=== PATIENT | female | born 1950 | race Asian ===

== ENCOUNTER 2018-08-17 10:26 | Day surgery (SDC) | payer MEDICARE, OTHER ==
[2018-08-17] MEDS ORDERED: NS 1,000 ML IV (11:30)
[2018-08-17] MEDS ORDERED: PROPOFOL 200 MG/20 ML VIAL As Ordered (11:50)
[2018-08-17] MEDS ORDERED: LIDOCAINE 2% INJ 100 MG/5 ML SDV (FOR ANES.) As Ordered (11:52)
== END 2018-08-17 13:30 | disposition home or self-care (01) ==
LOC: M OPP 10:26
DX: K29.70 Gastritis, unspecified, without bleeding (principal); R10.13 Epigastric pain; I10 Essential (primary) hypertension; E11.9 Type 2 diabetes mellitus without complications; E78.00 Pure hypercholesterolemia, unspecified; Z79.899 Other long term (current) drug therapy; Z78.0 Asymptomatic menopausal state; Z87.891 Personal history of nicotine dependence
CPT/HCPCS: G0121

== ENCOUNTER → 2018-08-21 | Outpatient (CLI) | payer MEDICARE, OTHER ==
[2018-08-21 11:41] LABS: HEMATOCRIT 37.6 % (36.0-47.0); HEMOGLOBIN 12.5 g/dl (12.0-15.5); MEAN CORPUSCULAR HEMOGLOBIN 32.6 pg (27.0-33.0); MEAN CORPUSCULAR HGB CONC 33.2 g/dl (32.0-36.5); MEAN CORPUSCULAR VOLUME 97.9 fl (80.0-96.0); PLATELET COUNT, AUTOMATED 217 10^3/uL (150-450); RED BLOOD COUNT 3.84 10^6/uL (4.00-5.40); RED CELL DISTRIBUTION WIDTH 11.9 % (11.5-14.5); WHITE BLOOD COUNT 4.6 10^3/uL (4.0-10.0)
[2018-08-21 11:46] LABS: ALBUMIN 4.2 GM/DL (3.2-5.2); ALBUMIN/GLOBULIN RATIO 1.17 (1.00-1.93); ALKALINE PHOSPHATASE 71 U/L (45-117); ALT/SGPT 44 U/L (12-78); AST/SGOT 38 U/L (7-37); BILIRUBIN,DIRECT 0.2 MG/DL (0.0-0.2); BILIRUBIN,TOTAL 0.5 MG/DL (0.2-1.0); IRON (FE) 99 UG/DL (50-170); TOTAL IRON BINDING CAPACITY 396 UG/DL (250-450); TOTAL PROTEIN 7.8 GM/DL (6.4-8.2)
[2018-08-21 11:53] LABS: INR 1.03; PROTHROMBIN TIME 13.6 SECONDS (12.1-14.4)
[2018-08-21 11:54] LABS: PARTIAL THROMBOPLASTIN TIME 32.3 SECONDS (25.4-37.6)
[2018-08-21 12:09] LABS: HEPATITIS B SURFACE ANTIGEN NEGATIVE (NEGATIVE)
[2018-08-21 12:37] LABS: HEPATITIS C VIRUS ABY INDEX 0.1 INDEX (<0.8)
[2018-08-21 12:38] LABS: HEPATITIS B CORE ANTIBODY IGM NEGATIVE (NEGATIVE)
[2018-08-21 12:39] LABS: HEPATITIS A ANTIBODY IGM NEGATIVE (NEGATIVE)
[2018-08-25 00:10] LABS: ANCA-ATYPICAL <1:20 titer (Neg:<1:20); ANTI-MITOCHONDRIAL ANTIBODY 3.2 Units (0.0-20.0); ANTINUCLEAR ANTIBODIES DIRECT Negative (Negative); CERULOPLASMIN 21.3 mg/dL (19.0-39.0); CYTOPLASMIC NEUTROP AB ANCA-C <1:20 titer (Neg:<1:20); PERINUCLEAR AB ANCA-P <1:20 titer (Neg:<1:20)
== END ==
LOC: M LRY 08:38
DX: R94.5 Abnormal results of liver function studies (principal)
CPT/HCPCS: 83550

== ENCOUNTER → 2018-09-01 | Outpatient (CLI) | payer MEDICARE, OTHER | LOC: M RAD 08:31 | DX: R94.5 Abnormal results of liver function studies (principal); K76.0 Fatty (change of) liver, not elsewhere classified | CPT/HCPCS: 76705 ==

== ENCOUNTER 2018-11-10 06:47 | Day surgery (SDC) | payer MEDICARE, OTHER ==
[~2018-11-10] VITALS: Ht 157.5 cm; Wt 65.3 kg
[~2018-11-10 06:47] MED LIST: GLIP5TAB20 PO; JANU50TA25 PO; LISI-542 PO; SIMV20TA2 PO
[2018-11-10] MEDS ORDERED: LIDOCAINE 2% INJ 100 MG/5 ML SDV (FOR ANES.) As Ordered ONE (07:13)
[2018-11-10] MEDS ORDERED: PROPOFOL 200 MG/20 ML VIAL As Ordered ONE (07:13)
[2018-11-10] MEDS ORDERED: NS 1,000 ML IV ONE (07:15)
--- NOTE | 2018-11-10 07:57 | ROOR ---
Patient Name: Grayson Mulligan Procedure Date: 11/10/2018 7:33 AM Date of : 1950 Age: 68 Room: [facility] Gender: Female Note Status: Finalized Procedure: Colonoscopy Indications: Screening for colorectal malignant neoplasm Providers: Josh CABRERA MD Referring MD: OLIVIA BAKER MD Requesting Provider: Medicines: Monitored Anesthesia Care Complications: No immediate complications. Procedure: Pre-Anesthesia Assessment: - The heart rate, respiratory rate, oxygen saturations, blood pressure, adequacy of pulmonary ventilation, and response to care were monitored throughout the procedure. The Colonoscope was introduced through the anus and advanced to the terminal ileum, with identification of the appendiceal orifice and IC valve. The colonoscopy was performed without difficulty. The patient tolerated the procedure well. The quality of the bowel preparation was good. Findings: The perianal and digital rectal examinations were normal. The colon (entire examined portion) was mildly redundant. Small Internal Hemorrhoids. The entire examined colon appeared normal on direct and retroflexion views. Impression: - Small Internal Hemorrhoids. - The entire colon is normal on direct and retroflexion views. - No specimens collected. Recommendation: - Repeat colonoscopy in 10 years for screening purposes. Josh Cabrera MD Josh CABRERA MD 11/10/2018 7:57:00 AM This report has been signed electronically. Number of Addenda: 0 Note Initiated On: 11/10/2018 7:33 AM Estimated Blood Loss: Estimated blood loss: none.
[2018-11-10 08:10] VITALS: BP 101/55
== END 2018-11-10 08:20 | disposition home or self-care (01) ==
LOC: M OPP 06:47
PROVIDERS: ATTEND Internal Medicine Gastroenterology
DX: Z12.11 Encounter for screening for malignant neoplasm of colon (principal); Q43.8 Other specified congenital malformations of intestine; K64.8 Other hemorrhoids; E11.9 Type 2 diabetes mellitus without complications; R12 Heartburn; I10 Essential (primary) hypertension; E78.00 Pure hypercholesterolemia, unspecified; Z79.899 Other long term (current) drug therapy

== ENCOUNTER 2020-10-18 15:27 | Inpatient (IN) | payer MEDICARE, OTHER ==
[~2020-10-18] VITALS: Ht 157.5 cm; Wt 65.0 kg
[~2020-10-18 15:27] MED LIST changes: -SIMV20TA2 PO; +SIMV20TA22 PO
[2020-10-18] MEDS ORDERED: ACETAMINOPHEN TAB 650MG DOSE (2X325MG) PO ONE (16:30)
[2020-10-18 16:43] LABS: HEMATOCRIT 37.7 % (36.0-47.0); HEMOGLOBIN 12.7 g/dl (12.0-15.5); MEAN CORPUSCULAR HEMOGLOBIN 31.8 pg (27.0-33.0); MEAN CORPUSCULAR HGB CONC 33.7 g/dl (32.0-36.5); MEAN CORPUSCULAR VOLUME 94.5 fl (80.0-96.0); PLATELET COUNT, AUTOMATED 194 10^3/uL (150-450); RED BLOOD COUNT 3.99 10^6/uL (4.00-5.40); WHITE BLOOD COUNT 4.6 10^3/uL (4.0-10.0)
[2020-10-18] MEDS ORDERED: GLIP5TAB8 PO (16:51)
[2020-10-18] MEDS ORDERED: JARD1TAB PO (16:51)
[2020-10-18] MEDS ORDERED: PT COMMENT (16:52)
--- NOTE | 2020-10-18 17:11 | REP ---
INDICATION: Coronavirus workup. COMPARISON: None. TECHNIQUE: SINGLE PORTABLE AP VIEW OF THE CHEST WAS PERFORMED. FINDINGS: There may be subtle hazy peripheral infiltrates bilaterally inferiorly. The heart is normal in size. The mediastinal silhouette is unremarkable. The visualized osseous structures are unremarkable. IMPRESSION: Possible subtle hazy peripheral infiltrates both lower lungs. <Electronically signed by Josias Sanford > 10/18/20 [id number]
[2020-10-18 17:13] LABS: ALBUMIN 3.2 GM/DL (3.2-5.2); ALT/SGPT 29 U/L (12-78); BILIRUBIN,TOTAL 0.8 MG/DL (0.2-1.0); BLOOD UREA NITROGEN 12 MG/DL (7-18); C REACTIVE PROTEIN QUANTITATIV 7.58 MG/DL (0.00-0.30); CALCIUM LEVEL 8.1 MG/DL (8.8-10.2); CARBON DIOXIDE LEVEL 28 MEQ/L (21-32); CHLORIDE LEVEL 95 MEQ/L (98-107); CREATININE FOR GFR 0.72 MG/DL (0.55-1.30); FERRITIN 748 NG/ML (8-252); GLOMERULAR FILTRATION RATE > 60.0 (>45); GLUCOSE, FASTING 162 MG/DL (70-100); POTASSIUM SERUM 3.6 MEQ/L (3.5-5.1); SODIUM LEVEL 130 MEQ/L (136-145); TROPONIN I < 0.02 NG/ML (< 0.10)
[2020-10-18 17:49] LABS: ATYPICAL LYMPH 3 % (0-5); LYMPHOCYTES 13 % (16-44); MONOCYTES 2 % (0-5); NEUTROPHILS 76 % (28-66)
[2020-10-18 17:50] LABS: ANISOCYTOSIS 1+; OVALOCYTES 1+; PLATELET ESTIMATE NORMAL (NORMAL); POIKILOCYTOSIS 1+
[2020-10-18] MEDS ORDERED: NS IV ONE (18:00)
[2020-10-18] MEDS ORDERED: CEFEPIME HCL 2 GM in D5W MINI-BAG PLUS 50 ML IV ONE (18:00)
[2020-10-18] MEDS ORDERED: GLUCAGON INJ 1MG VIAL SC PRN (18:30)
[2020-10-18] MEDS ORDERED: DEXTROSE 50% 50 ML SYRINGE IV PRN (18:30)
[2020-10-18] MEDS ORDERED: GLUCOSE 4GM CHEW TABLET PO PRN (18:30)
[2020-10-18] MEDS: HumaLOG INSULIN (NovoLOG) PER UNIT SC SCH (21:00)
[2020-10-18 21:28] LABS: HEMATOCRIT 33.9 % (36.0-47.0); HEMOGLOBIN 10.9 g/dl (12.0-15.5); MEAN CORPUSCULAR HGB CONC 32.2 g/dl (32.0-36.5); MEAN CORPUSCULAR VOLUME 96.3 fl (80.0-96.0); PLATELET COUNT, AUTOMATED 173 10^3/uL (150-450); RED BLOOD COUNT 3.52 10^6/uL (4.00-5.40); WHITE BLOOD COUNT 4.4 10^3/uL (4.0-10.0)
[2020-10-18 21:49] LABS: LYMPHOCYTES 18 % (16-44); MONOCYTES 5 % (0-5); NEUTROPHILS 73 % (28-66); PLATELET ESTIMATE NORMAL (NORMAL); POLYCHROMASIA 1+
[2020-10-18 21:50] LABS: ANISOCYTOSIS 1+
[2020-10-18 22:48] LABS: ALBUMIN 2.4 GM/DL (3.2-5.2); ALT/SGPT 22 U/L (12-78); BILIRUBIN,DIRECT 0.2 MG/DL (0.0-0.2); BILIRUBIN,TOTAL 0.6 MG/DL (0.2-1.0); BLOOD UREA NITROGEN 10 MG/DL (7-18); C REACTIVE PROTEIN QUANTITATIV 6.14 MG/DL (0.00-0.30); CALCIUM LEVEL 6.9 MG/DL (8.8-10.2); CARBON DIOXIDE LEVEL 24 MEQ/L (21-32); CHLORIDE LEVEL 108 MEQ/L (98-107); CK-MB VALUE MASS < 1.0 NG/ML (<3.6); CPK CREATINE PHOSPHOKINASE 129 U/L (26-192); CREATININE FOR GFR 0.66 MG/DL (0.55-1.30); FERRITIN 631 NG/ML (8-252); GLOMERULAR FILTRATION RATE > 60.0 (>45); GLUCOSE, FASTING 141 MG/DL (70-100); HEPATITIS B SURFACE ANTIGEN NEGATIVE (NEGATIVE); HIV 1&2 SCREEN CENTAUR NEGATIVE (NEGATIVE); LDH LACTATE DEHYDROGENASE 345 U/L (84-246); MB/CK RELATIVE INDEX 0.78 (< OR =4); NT-PRO BNP 372 PG/ML (<125); POTASSIUM SERUM 3.2 MEQ/L (3.5-5.1); SODIUM LEVEL 138 MEQ/L (136-145); TOTAL PROTEIN 5.7 GM/DL (6.4-8.2); TRIGLYCERIDES LEVEL 119 MG/DL (<150); TROPONIN I < 0.02 NG/ML (< 0.10)
[2020-10-19] VITALS (11 sets, daily range): BP systolic 78–105; BP diastolic 40–78; O2SAT 90–95
[2020-10-19] MEDS ORDERED: REMDESIVIR 200 MG in NS 250 ML IV ONE ×2
[2020-10-19] MEDS ORDERED: SODIUM CHLORIDE 0.9% INJ 10 ML SYR IV ONE (01:00)
[2020-10-19] MEDS: HumaLOG INSULIN (NovoLOG) PER UNIT SC SCH ×4 (07:30→21:00)
[2020-10-19 08:16] LABS: EOS % 0.2 % (0.0-3.0); HEMATOCRIT 35.9 % (36.0-47.0); HEMOGLOBIN 11.9 g/dl (12.0-15.5); LYMPH % 18.3 % (24.0-44.0); MEAN CORPUSCULAR HGB CONC 33.1 g/dl (32.0-36.5); MEAN CORPUSCULAR VOLUME 96.5 fl (80.0-96.0); MONO % 3.2 % (0.0-5.0); NEUTROPHILS % 78.3 % (36.0-66.0); PLATELET COUNT, AUTOMATED 183 10^3/uL (150-450); RED BLOOD COUNT 3.72 10^6/uL (4.00-5.40)
[2020-10-19 08:17] LABS: LYMPH # 0.7 10^3/uL (1.5-5.0); MONO # 0.1 10^3/uL (0.0-0.8); NEUTROPHILS # 3.2 10^3/uL (1.5-8.5)
[2020-10-19] MEDS: ENOXAPARIN 40MG/0.4ML SYRINGE (J1650 PER 10MG) SC SCH (08:25)
[2020-10-19] MEDS: SIMVASTATIN 20 MG TAB PO SCH (08:25)
[2020-10-19] MEDS: PIPERACILLIN/TAZOBACTAM SOD 4.5 GM in D5W MINI-BAG PLUS 50 ML IV SCH ×5 (08:25→18:00)
[2020-10-19 08:52] LABS: ALBUMIN 2.5 GM/DL (3.2-5.2); ALT/SGPT 22 U/L (12-78); BILIRUBIN,DIRECT 0.2 MG/DL (0.0-0.2); BILIRUBIN,TOTAL 0.6 MG/DL (0.2-1.0); BLOOD UREA NITROGEN 9 MG/DL (7-18); CALCIUM LEVEL 7.4 MG/DL (8.8-10.2); CARBON DIOXIDE LEVEL 26 MEQ/L (21-32); CHLORIDE LEVEL 108 MEQ/L (98-107); CREATININE FOR GFR 0.58 MG/DL (0.55-1.30); FERRITIN 595 NG/ML (8-252); GLOMERULAR FILTRATION RATE > 60.0 (>45); GLUCOSE, FASTING 135 MG/DL (70-100); MAGNESIUM LEVEL 2.4 MG/DL (1.8-2.4); NT-PRO BNP 650 PG/ML (<125); POTASSIUM SERUM 3.7 MEQ/L (3.5-5.1); SODIUM LEVEL 139 MEQ/L (136-145); TOTAL PROTEIN 5.7 GM/DL (6.4-8.2); TROPONIN I < 0.02 NG/ML (< 0.10)
[2020-10-19 08:53] LABS: INR 1.12; PROTHROMBIN TIME 14.7 SECONDS (12.5-14.3)
[2020-10-19 08:54] LABS: PARTIAL THROMBOPLASTIN TIME 37.7 SECONDS (24.2-38.5)
[2020-10-19 08:57] LABS: D-DIMER QUANT 1848.4 ng/ml (<500)
--- NOTE | 2020-10-19 10:02 | HPE ---
HISTORY AND PHYSICAL DATE OF ADMISSION: 10/18/2020 CHIEF COMPLAINT: Dyspnea. HISTORY OF PRESENT ILLNESS: A 70-year-old woman developed myalgia, malaise. She had A COVID screen initially negative on October 11. Two days later she developed loss of smell and increasing malaise, came to the ER, found to be positive for COVID-19. Her COVID-19 test was an outpatient study. She presents with dyspnea and mild to moderate hypoxia. Developed low blood pressures while in the ED and was responding favorably to a 2 liter fluid bolus. Patient interviewed with telephone assist using her daughter as a hospital aide since the patient only speaks Kyrgyz. PAST MEDICAL HISTORY: Remarkable for diabetes mellitus type-2 non-insulin requiring, hypercholesterolemia. CURRENT MEDICATIONS INCLUDE: - Glipizide 5 mg daily - Lisinopril 5 mg daily - Simvastatin 20 mg daily - Sitagliptin-Metformin one by mouth twice a day More details regarding her history, family history, etc will need to be elicited from daughter when she can be interviewed with more detail face to face. ALLERGIES: There are no known drug allergies. PHYSICAL EXAMINATION: GENERAL: The patient is alert, pleasant and cooperative. She is conversant in Kyrgyz, using her cell phone w no apparent difficulty. She is just part-way through a fluid resuscitation bolus because of hypotension, pressure dropping to just below 90 and she has responded favorably to this infusion. VITAL SIGNS: Pressure currently 110/59, sat 85% on room air and responded into the low 90s with 3 to 4 liters. Temperature 101.4 documented. HEENT: Facies are symmetrical. No neck masses palpable. LUNGS: Air movements are good except we do hear rales in the bases, somewhat more prominent on the left than the right. HEART: Regular rhythm without murmur. ABDOMEN: Soft. No guarding, no mass, no distention, nontender. EXTREMITIES: Moves all extremities well without limitation. SKIN: There is no visible skin rash. NEUROLOGIC: She has no focal weakness and no sensory deficits and seems to be alert and oriented as well as one can tell through the automotive parts interpreter and alternate language. Laboratory data available here today includes a sodium of 130, glucose 162, and AST is 47, ALT 29, C-reactive protein 7.58. Procalcitonin is pending. Lactic acid was elevated at 2.3. Repeat lactic acid is ordered for 1821. Chest x-ray shows subtle hazy peripheral infiltrates in both lower lung dalal. ASSESSMENT: The patient with what appears to be COVID pneumonia. She did develop sepsis, was given a dose of cefepime. After discussion with Dr. Syed, this will be changed to Zosyn going forward. Dr. Syed because of underlying risk factors has suggested remdesivir protocol and will likely add atezolizumab for further treatment. Steroids will be held off for now at Dr. Syed's recommendation. Her oral diabetes medications will be stopped and she will have fingersticks and sliding scale Insulin coverage. We will continue her simvastatin for now. Prognosis is guarded considering the underlying diagnosis and risk factors, age, diabetes. Her daughter is aware of her admission to ICU and Dr. Burton received a communication regarding the admission.
[2020-10-19] MEDS ORDERED: ALBUTEROL 90 MCG/ACT 8GM HFA INHALER INH PRN (11:00)
--- NOTE | 2020-10-19 12:58 | IPNPDOC ---
Text Note Date of Service The patient was seen on 10/19/20. NOTE SUBJECTIVE: -On 5L NC, no acute changes overnight OBJECTIVE: VITAL SIGNS: Tmax 101.4, normotensive, on 5L NC HEENT: NCAT, non injected, anicteric, MMM LUNGS: Bibasilar wet crackles with otherwise good air movement HEART: RRR, no mrg ABDOMEN: Normoactive sounds, soft, NTND EXTREMITIES: no LE edema, WWP NEUROLOGIC: AOx3, CN3-12 intact, moving all extremities, nonfocal Laboratory data: reviewed Chest x-ray: subtle hazy peripheral infiltrates in both lower lung dalal. ASSESSMENT: 70 yo W admitted for COVID-19 pneumonia and hypoxemic respiratory failure with sepsis. Hypoxemic respiratory failure 2/2 Covid-19 PNA: -supplemental O2, to goal 92%, currently on 5L NC -Per Dr. Dominguez on baricitinib/remedesivir -Steroids will be held off for now at Dr. Syed's recommendation, at admission. -incentive spirometry -benzonatate for cough -albuterol mdi -empiric antibiotics as below Sepsis with fever, tachycardia, hypotension -c/w zosyn, day 2 -f/u BCx -procalcitonin is elevated -> sputum culture if expectorated DM2: -SSI AC/HS -FSBG AC/HS -hypolgycemia protocol -consistent carb diet HLD: -c/w home simvastatin VS,Fishbone, I+O VS, Fishbone, I+O Laboratory Tests 10/18/20 15:43 10/18/20 20:10 10/19/20 07:33 Vital Signs Date Time Temp Pulse Resp B/P (MAP) Pulse Ox O2 Delivery O2 Flow Rate FiO2 10/19/20 06:00 91 Nasal Cannula 5.0 10/19/20 02:30 98.9 69 18 105/52 (69) I&O- Last 24 Hours up to 6 AM 10/19/20 06:00 Intake Total 2120 ml Balance 2120 ml ALBARO RECIO MD Oct 19, 2020 10:49
[2020-10-19] MEDS: BARICITINIB 2MG TABLET (OLUMIANT) FOR EUA PO SCH (14:13)
[2020-10-19] MEDS ORDERED: NS 1,000 ML IV ONE (15:30)
[2020-10-19] MEDS ORDERED: NS 1,000 ML IV SCH (15:30)
[2020-10-19] MEDS ORDERED: SODIUM CHLORIDE 0.9% 1000ML IV ONE (15:30)
[2020-10-19] MEDS: NS 1,000 ML IV SCH (17:02)
--- NOTE | 2020-10-19 21:47 | CR ---
CONSULTATION DATE: 10/19/2020 Pulmonary medicine remote telemedicine consult. CHIEF COMPLAINT: Dyspnea. HISTORY OF PRESENT ILLNESS: History was obtained from the chart review as this was a remote consult. Patient is a 70-year-old female with a past medical history of diabetes and hyperlipidemia who presented with complaints of malaise and myalgias as well as some shortness of breath. Patient had a COVID test initially done on 10/11/2020. She then had symptoms of shortness of breath and loss of smell and presented to the emergency department (ED) 2 days later when her repeat outpatient COVID-19 test was positive. She was brought in by emergency medical services (EMS). Initially, she was 86% on room air and was given nasal cannula oxygen supplementation with improvement. In the ED, patient was hypotensive. She was given two liters normal saline bolus with improvement in her blood pressure. She also had a mild lactic acidosis initially which did improve with IV fluids. PAST MEDICAL HISTORY: Diabetes, hyperlipidemia, hypertension. PAST SURGICAL HISTORY: Colonoscopy. HOME MEDICATIONS: - Janumet - simvastatin - lisinopril - glipizide - Jardiance SOCIAL HISTORY: No tobacco use. VITAL SIGNS: Maximum temperature (T-max) 101.4, current temperature (T-current) 98.9, pulse 69, respirations 18, blood pressure 105/52, oxygen 91% on 5 liters nasal cannula. Intake 2 liters, output not recorded. LABORATORY DATA: WBC 4.0, hemoglobin 11.9, platelets 183. Chemistry: Sodium 139, potassium 3.7, chloride 108, bicarbonate 26, BUN 9, creatinine 0.58, glucose 135, lactic acid 2.3, repeat 2.2, ferritin 595, albumin 2.5, AST and ALT within normal limits, LDH 345, troponin negative times two, BNP 650, increased from 372, procalcitonin was 0.12, INR was 1.12, fibrinogen 616, D-dimer 1848. IMAGING: Chest x-ray on admission showed very minimal subtle hazy opacities in the lower lobe bilaterally. ASSESSMENT AND PLAN: Ms. Mulligan is a 70-year-old female with a past medical history of diabetes, hypertension, and hyperlipidemia who presented with acute hypoxemic respiratory failure in the setting of COVID-19 pneumonia. Patient was initially requiring 2-3 liters nasal cannula oxygen, however has been requiring increasing amounts of nasal cannula oxygen supplementation. Given her timeline, patient would be a candidate for Remdesivir for her COVID-19 pneumonia. Given her hypoxemic respiratory failure, she would also benefit from the addition of baricitinib to the Remdesivir which has shown on recent studies to have improvement in recovery time as well as improving the risk of progression to mechanical ventilation and intubation. With the baricitinib and Remdesivir would hold off on steroids at this time. She will be on Remdesivir for a 10 day course and the baricitinib will be for a 14 day course or until discharge. - Will continue with incentive spirometry and encourage patient for awake pronation as tolerated. - Continue with empiric antibiotics with trending of procalcitonin to aid in deescalation. - Will continue with IV fluid boluses as needed to maintain a mean arterial pressure (MAP) above 65. If patient is having continued hypotension, then she may require pressors at that time. - Continue with albuterol metered dose inhaler (MDI). Deep venous thrombosis (DVT) prophylaxis. Lovenox 40 mg daily. If she has increasing D-dimer, would consider increasing to weight-based prophylaxis which is 0.5 mg/kg twice a day. CODE STATUS: FULL CODE. Please do not hesitate to call if any further questions or concerns.
[2020-10-20] MEDS: REMDESIVIR 100 MG in NS 250 ML IV SCH (00:37)
[2020-10-20] MEDS ORDERED: ACETAMINOPHEN TAB 650MG DOSE (2X325MG) PO PRN (01:45)
[2020-10-20] MEDS: PIPERACILLIN/TAZOBACTAM SOD 4.5 GM in D5W MINI-BAG PLUS 50 ML IV SCH ×4 (02:20→18:08)
[2020-10-20] MEDS: ONDANSETRON 4MG/2ML VIAL IV PRN (02:20)
[2020-10-20] MEDS: SODIUM CHLORIDE 0.9% INJ 10 ML SYR IV SCH (02:21)
[2020-10-20 04:00] VITALS: O2SAT 93
[2020-10-20] MEDS: NS 1,000 ML IV SCH (06:36)
[2020-10-20 06:37] VITALS: BP 98/54; O2SAT 95
[2020-10-20 07:21] LABS: HEMATOCRIT 32.9 % (36.0-47.0); HEMOGLOBIN 10.6 g/dl (12.0-15.5); MEAN CORPUSCULAR HEMOGLOBIN 31.1 pg (27.0-33.0); MEAN CORPUSCULAR HGB CONC 32.2 g/dl (32.0-36.5); MEAN CORPUSCULAR VOLUME 96.5 fl (80.0-96.0); PLATELET COUNT, AUTOMATED 190 10^3/uL (150-450); RED BLOOD COUNT 3.41 10^6/uL (4.00-5.40)
[2020-10-20 07:48] LABS: EOSINOPHILS 1 % (0-3); LYMPHOCYTES 34 % (16-44); MONOCYTES 3 % (0-5); NEUTROPHILS 62 % (28-66); PLATELET ESTIMATE NORMAL (NORMAL)
[2020-10-20 07:59] LABS: INR 1.15
[2020-10-20 08:00] VITALS: BP 104/55
[2020-10-20 08:00] LABS: PARTIAL THROMBOPLASTIN TIME 35.1 SECONDS (24.2-38.5)
[2020-10-20 08:17] LABS: ALBUMIN 2.2 GM/DL (3.2-5.2); ALT/SGPT 17 U/L (12-78); BILIRUBIN,DIRECT 0.2 MG/DL (0.0-0.2); BILIRUBIN,TOTAL 0.5 MG/DL (0.2-1.0); BLOOD UREA NITROGEN 10 MG/DL (7-18); CALCIUM LEVEL 7.3 MG/DL (8.8-10.2); CARBON DIOXIDE LEVEL 22 MEQ/L (21-32); CHLORIDE LEVEL 111 MEQ/L (98-107); CREATININE FOR GFR 0.61 MG/DL (0.55-1.30); FERRITIN 534 NG/ML (8-252); GLOMERULAR FILTRATION RATE > 60.0 (>45); GLUCOSE, FASTING 129 MG/DL (70-100); MAGNESIUM LEVEL 2.2 MG/DL (1.8-2.4); NT-PRO BNP 1028 PG/ML (<125); POTASSIUM SERUM 2.9 MEQ/L (3.5-5.1); SODIUM LEVEL 141 MEQ/L (136-145); TOTAL PROTEIN 5.7 GM/DL (6.4-8.2); TROPONIN I < 0.02 NG/ML (< 0.10)
[2020-10-20] MEDS: HumaLOG INSULIN (NovoLOG) PER UNIT SC SCH ×4 (09:56→21:00)
[2020-10-20] MEDS: ENOXAPARIN 40MG/0.4ML SYRINGE (J1650 PER 10MG) SC SCH (09:57)
[2020-10-20] MEDS: SIMVASTATIN 20 MG TAB PO SCH (09:57)
[2020-10-20] MEDS: BARICITINIB 2MG TABLET (OLUMIANT) FOR EUA PO SCH (09:59)
[2020-10-20 12:00] VITALS: BP 92/52
[2020-10-20] MEDS ORDERED: POTASSIUM CHLORIDE 10 MEQ SR TABLET PO ONE ×2 (12:00→14:00)
--- NOTE | 2020-10-20 14:28 | IPNPDOC ---
Text Note Date of Service The patient was seen on 10/20/20. NOTE SUBJECTIVE: -On 5L NC, no acute changes overnight or new complaints -Sleeping, awake on voice, continues to feel tired and weak -Had episode of asymptomatic hypotension yesterday OBJECTIVE: VITAL SIGNS: see below, on 5L NC saturating 96% HEENT: NCAT, non injected, anicteric, MMM LUNGS: Bibasilar wet crackles with otherwise good air movement HEART: RRR, no mrg ABDOMEN: Normoactive sounds, soft, NTND EXTREMITIES: no LE edema, WWP NEUROLOGIC: AOx3, CN3-12 intact, moving all extremities, nonfocal Laboratory data: reviewed Chest x-ray: subtle hazy peripheral infiltrates in both lower lung dalal. ASSESSMENT: 70 yo W admitted for COVID-19 pneumonia and hypoxemic respiratory failure with sepsis. Hypoxemic respiratory failure 2/2 Covid-19 PNA: -supplemental O2, to goal 92%, currently on 5L NC -Per Dr. Syed on baricitinib/remedesivir, day #2 -Steroids will be held off for now at Dr. Syed's recommendation, at admission. -incentive spirometry -benzonatate for cough -albuterol mdi -empiric antibiotics as below Sepsis with fever, tachycardia, hypotension -c/w zosyn, day #3. Will plan to dc tomorrow if no fevers or remains nonfocal despite the episodic hypotension -f/u BCx -sputum culture if expectorated DM2: -SSI AC/HS -FSBG AC/HS -hypolgycemia protocol -consistent carb diet HLD: -c/w home simvastatin VS,Fishbone, I+O VS, Fishbone, I+O Laboratory Tests 10/20/20 06:59 Vital Signs Date Time Temp Pulse Resp B/P (MAP) Pulse Ox O2 Delivery O2 Flow Rate FiO2 10/20/20 12:00 98.7 57 18 92/52 (65) 95 High Flow Cannula 5.0 ALBARO RECIO MD Oct 20, 2020 14:28
[2020-10-20 21:15] VITALS: BP 116/68
--- NOTE | 2020-10-20 21:21 | ECGEPIP ---
[facility] - ED Test Date: 2020-10-18 Pat Name: TROY KLEIN Department: Room: [place] [address] Gender: Female Clinical Training Coordinator: felisha : 1950 Requested By: Ji Almazan Order Number: [id number] Reading MD: Ji Lindsey Measurements Intervals [place] Rate: 77 P: DE: 0 QRS: 19 QRSD: 84 T: 43 QT: 375 QTc: 426 Interpretive Statements SINUS RHYTHM NONSPECIFIC ST & T-WAVE ABNORMALITY NO PRIORS FOR COMPARISON Electronically Signed on 10-20-2020 21:20:38 EST by Ji Lindsey
[2020-10-20 22:00] VITALS: O2SAT 92
[2020-10-21] MEDS: REMDESIVIR 100 MG in NS 250 ML IV SCH (00:57)
[2020-10-21] MEDS: SODIUM CHLORIDE 0.9% INJ 10 ML SYR IV SCH (02:13)
[2020-10-21] MEDS: PIPERACILLIN/TAZOBACTAM SOD 4.5 GM in D5W MINI-BAG PLUS 50 ML IV SCH ×2 (02:13→06:50)
[2020-10-21 05:00] VITALS: BP 108/57
[2020-10-21] MEDS: HumaLOG INSULIN (NovoLOG) PER UNIT SC SCH ×2 (07:30→12:24)
[2020-10-21] MEDS: ONDANSETRON 4MG/2ML VIAL IV PRN (07:48)
[2020-10-21 08:00] VITALS: BP 124/58
[2020-10-21] MEDS: ENOXAPARIN 40MG/0.4ML SYRINGE (J1650 PER 10MG) SC SCH (09:37)
[2020-10-21] MEDS: SIMVASTATIN 20 MG TAB PO SCH (09:38)
[2020-10-21] MEDS: BARICITINIB 2MG TABLET (OLUMIANT) FOR EUA PO SCH (09:38)
[2020-10-21 09:48] LABS: BASO % 0.3 % (0.0-1.0); EOS # 0.1 10^3/uL (0.0-0.5); EOS % 0.8 % (0.0-3.0); HEMATOCRIT 36.2 % (36.0-47.0); HEMOGLOBIN 11.9 g/dl (12.0-15.5); LYMPH % 16.7 % (24.0-44.0); MEAN CORPUSCULAR HEMOGLOBIN 31.9 pg (27.0-33.0); MEAN CORPUSCULAR HGB CONC 32.9 g/dl (32.0-36.5); MEAN CORPUSCULAR VOLUME 97.1 fl (80.0-96.0); MONO # 0.2 10^3/uL (0.0-0.8); MONO % 3.9 % (0.0-5.0); NEUTROPHILS # 4.9 10^3/uL (1.5-8.5); PLATELET COUNT, AUTOMATED 224 10^3/uL (150-450); RED BLOOD COUNT 3.73 10^6/uL (4.00-5.40); WHITE BLOOD COUNT 6.2 10^3/uL (4.0-10.0)
[2020-10-21 10:09] LABS: INR 1.23; PROTHROMBIN TIME 15.8 SECONDS (12.5-14.3)
[2020-10-21 10:18] LABS: PARTIAL THROMBOPLASTIN TIME 34.2 SECONDS (24.2-38.5)
[2020-10-21 10:35] LABS: ALBUMIN 2.1 GM/DL (3.2-5.2); ALT/SGPT 15 U/L (12-78); BILIRUBIN,DIRECT 0.2 MG/DL (0.0-0.2); BILIRUBIN,TOTAL 0.6 MG/DL (0.2-1.0); BLOOD UREA NITROGEN 11 MG/DL (7-18); CALCIUM LEVEL 7.3 MG/DL (8.8-10.2); CARBON DIOXIDE LEVEL 21 MEQ/L (21-32); CHLORIDE LEVEL 110 MEQ/L (98-107); CREATININE FOR GFR 0.64 MG/DL (0.55-1.30); FERRITIN 532 NG/ML (8-252); GLOMERULAR FILTRATION RATE > 60.0 (>45); GLUCOSE, FASTING 149 MG/DL (70-100); MAGNESIUM LEVEL 2.3 MG/DL (1.8-2.4); NT-PRO BNP 1057 PG/ML (<125); POTASSIUM SERUM 4.1 MEQ/L (3.5-5.1); SODIUM LEVEL 139 MEQ/L (136-145); TOTAL PROTEIN 5.4 GM/DL (6.4-8.2)
[2020-10-21 13:14] VITALS: BP 125/59
[2020-10-21] MEDS ORDERED: VENTAER INH (14:22)
[2020-10-21] MEDS ORDERED: TESS100C PO (14:22)
--- NOTE | 2020-10-21 14:35 | DS.PDOC ---
Discharge Summary General Date of Admission Oct 18, 2020 at 19:31 Date of Discharge 10/21/2020 Attending Physician: ALBARO RECIO MD Discharge Summary PROCEDURES PERFORMED DURING STAY: None ADMITTING DIAGNOSES: 1. Covid-19 PNA DISCHARGE DIAGNOSES: Covid-19 PNA Acute hypoxemic respiratory failure 2/2 covid-19 PNA Sepsis secondary to covid-19 infection HLD COMPLICATIONS/CHIEF COMPLAINT: Pneumonia Due To Covid-19. HISTORY OF PRESENT ILLNESS: 70-year-old woman developed myalgia, malaise and had a COVID screen initially negative on October 11. and two days later she developed loss of smell and increasing malaise, and came to the ED found to be positive for COVID-19. Her COVID-19 test was an outpatient study. She represented to the ED on 10/18/2020 with dyspnea and moderate hypoxia and developed low blood pressures while in the ED and that was fluid responsive. Hospital course: In the ED she was hydrated with 2L bolus and met sirs criteria with tachycardia, hypotension and fever. Her hypoxemia acutely worsened and she required up to 6L of nasal canula oxygen. She was begun on baricitinib/remdesevir and on day 3 she felt much better, and her hypoxemia resolved completely. She is now being discharged home to continue self isolation until resolution of her symptoms or 14 day and follow up closely with her PCP thereafter. We discussed symptoms that would warrant prompt evaluation at the hospital. DISCHARGE MEDICATIONS: Please see below. ALLERGIES: Please see below. PHYSICAL EXAMINATION ON DISCHARGE: VITAL SIGNS: Please see below. HEENT: NCAT, non injected, anicteric, MMM LUNGS: moving air very well today, continues to have bibasilar crackles HEART: RRR, no mrg ABDOMEN: Normoactive sounds, soft, NTND EXTREMITIES: no LE edema, WWP NEUROLOGIC: AOx3, CN3-12 intact, moving all extremities, nonfocal LABORATORY DATA: Please see below. IMAGING: Chest x-ray: subtle hazy peripheral infiltrates in both lower lung dalal. PROGNOSIS: Good ACTIVITY: As tolerated. DIET: consistent carb DISCHARGE PLAN: Home DISPOSITION: home DISCHARGE INSTRUCTIONS: 1. Home to self isolate for 14d. albuterol inhaler for SOB ,wheezing or cough and tessalon perls for cough. ITEMS TO FOLLOWUP ON ON OUTPATIENT: Covid-19 infection DISCHARGE CONDITION: Stable TIME SPENT ON DISCHARGE: 42 minutes. Vital Signs/I&Os Vital Signs Date Time Temp Pulse Resp B/P (MAP) Pulse Ox O2 Delivery O2 Flow Rate FiO2 10/21/20 13:14 96.6 68 18 125/59 (81) 92 Room Air 10/21/20 08:00 3.0 I&O- Last 24 Hours up to 6 AM 10/21/20 06:00 Intake Total 480 ml Balance 480 ml Laboratory Data Labs 24H Laboratory Tests 2 10/20/20 16:47: Bedside Glucose (Misc Panel) 97 10/20/20 21:20: Bedside Glucose (Misc Panel) 99 10/21/20 08:46: Bedside Glucose (Misc Panel) 116H 10/21/20 09:37: Immature Granulocyte % (Auto) 0.3, Neutrophils (%) (Auto) 78.0H, Lymphocytes (%) (Auto) 16.7L, Monocytes (%) (Auto) 3.9, Eosinophils (%) (Auto) 0.8, Basophils (%) (Auto) 0.3, Neutrophils # (Auto) 4.9, Lymphocytes # (Auto) 1.0L, Monocytes # (Auto) 0.2, Eosinophils # (Auto) 0.1, Basophils # (Auto) 0.0, Nucleated Red Blood Cells % (auto) 0.0, Prothrombin Time 15.8H, Prothromb Time International Ratio 1.23, Activated Partial Thromboplast Time 34.2, Fibrinogen 471H, D-Dimer, Quantitative 1895.56H, Anion Gap 8, Glomerular Filtration Rate > 60.0, Calcium Level 7.3L, Magnesium Level 2.3, Ferritin 532H, Total Bilirubin 0.6, Direct Bilirubin 0.2, Aspartate Amino Transf (AST/SGOT) 30, Alanine Aminotransferase (ALT/SGPT) 15, Alkaline Phosphatase 54, OV-[id number]-Type Natriuretic Peptide 1057H, Total Protein 5.4L, Albumin 2.1L, Albumin/Globulin Ratio 0.6L CBC/BMP Laboratory Tests 10/21/20 09:37 FSBS Laboratory Tests Test 10/20/20 16:47 10/20/20 21:20 10/21/20 08:46 Range/Units Bedside Glucose (Misc Panel) 97 99 116 80-115 MG/DL Microbiology Microbiology 10/18/20 Blood Culture - Preliminary, Resulted No Growth after 48 hours. All Specime... 10/18/20 Blood Culture - Preliminary, Resulted No Growth after 48 hours. All Specime... Discharge Medications Scheduled Empagliflozin (Jardiance) 10 Mg Tablet, 10 MG PO DAILY, (Reported) Glipizide (Glipizide) 5 Mg Tablet, 5 MG PO DAILY, (Reported) Lisinopril (Lisinopril) 5 Mg Tab, 5 MG PO DAILY, (Reported) Simvastatin (Simvastatin) 20 Mg Tab, 20 MG PO DAILY, (Reported) Sitagliptin Phos/Metformin HCl (Janumet Xr 50-1,000 mg Tablet) 1 Tab Tab, 1 TAB PO BID, (Reported) Scheduled PRN Albuterol Sulfate (Ventolin Hfa) 18 Gm Hfa.aer.ad, 2 PUFF INH Q6HP PRN for SHORTNESS OF BREATH Benzonatate (Tessalon Perle) 100 Mg Capsule, 1 CAP PO TIDP PRN for COUGH Miscellaneous Medications [Pt Comment] , (Reported) daughter states: pt has had no meds in about a week due to weakness and not eating Allergies Coded Allergies: No Known Allergies (Unverified , 08/07/18) ALBARO RECIO MD Oct 21, 2020 14:35
== END 2020-10-21 15:25 | disposition home or self-care (01) | DRG 871 ==
LOC: EDBD 15:27 → M ED 15:27 → UNDOADMIN 18:24 → M ED INP 18:24 → M 4MAIN 10-19 02:30
PROVIDERS: ADMIT Family Medicine; ATTEND Internal Medicine
DX: A41.9 Sepsis, unspecified organism (principal); U07.1 COVID-19; J12.89 Other viral pneumonia; J96.01 Acute respiratory failure with hypoxia; E87.2 Acidosis; E11.9 Type 2 diabetes mellitus without complications; Z79.899 Other long term (current) drug therapy; E78.5 Hyperlipidemia, unspecified